=== PATIENT | female | born 1965 | race Caucasian/White ===

== ENCOUNTER 2020-05-21 02:46 | Inpatient (IN) ==
[2020-05-21] MEDS ORDERED: Isovue-370 500 ML BOTTLE IVP ONE (05:14)
[2020-05-21] MEDS ORDERED: Aspirin 81 MG TAB.CHEW PO ONE (07:21)
[2020-05-21] MEDS ORDERED: Regadenoson 0.4 MG/5 ML SYRINGE IVP ONE (08:29)
[2020-05-21] MEDS ORDERED: Naloxone 0.4 MG/ML INJ IVP PRN (08:51)
[2020-05-21 15:30] LABS: Bilirubin,Urine Negative (Negative); Blood,Urine Negative (Negative); Clarity,Urine Clear (Clear); Color,Urine Yellow (Yellow); Glucose,Urine (UA) >=1000 mg/dL (Normal); Ketones,Urine Negative (Negative); Leukocyte Esterase,Urine Negative (Negative); Mucus,Urine Few per lpf (None-Few); Nitrite,Urine Negative (Negative); Protein,Urine 30 mg/dL (Neg-Trace); Specific Gravity,Urine > 1.030 (1.010-1.025); Squamous Epithelial Cell,Urine Many per hpf (None-Few); Urobilinogen,Urine >=8.0 mg/dL (Normal); WBC,Urine 0-3 per hpf (0-3)
[2020-05-21] MEDS: Gabapentin 400 MG CAPSULE PO SCH (17:16)
[2020-05-21] MEDS: Venlafaxine XR (24 HR) 37.5 MG CAP.ER.24H PO SCH (17:16)
[2020-05-21] MEDS: lamoTRIgine 100 MG TABLET PO SCH (20:54)
[2020-05-21] MEDS: Insulin DETEMIR 100 UNIT/ML X5UNITS SUBQ SCH (20:54)
[2020-05-22] MEDS ORDERED: atenoloL 50 MG TABLET PO SCH (09:00)
[2020-05-22] MEDS: Gabapentin 400 MG CAPSULE PO SCH ×2 (10:10→17:18)
[2020-05-22] MEDS: Aspirin Enteric Coated 81 MG Tablet PO SCH (10:10)
[2020-05-22] MEDS: lamoTRIgine 100 MG TABLET PO SCH ×2 (10:10→21:09)
[2020-05-22] MEDS: FLUoxetine 20 MG CAPSULE PO SCH (10:10)
[2020-05-22] MEDS: lisinopriL 5 MG TABLET PO SCH (10:11)
[2020-05-22] MEDS: Ondansetron 4 MG/2 ML VIAL IVP PRN ×2 (10:20→21:00)
[2020-05-22] MEDS: Insulin DETEMIR 100 UNIT/ML X5UNITS SUBQ SCH ×2 (10:21→21:07)
[2020-05-22] MEDS ORDERED: Perflutren Lipid Microsphere 1.3 ML in 0.9 % Sodium Chloride 8.7 ML IVP PRN (11:11)
[2020-05-22] MEDS ORDERED: D5% in Water 1,000 ML IVC PRN (13:48)
[2020-05-22] MEDS ORDERED: Dextrose Gel 15 GM/37.5 ML TUBE PO PRN ×2 (13:48)
[2020-05-22] MEDS ORDERED: *HR* Dextrose 50 % in Water (Vial) 50 ML VIAL IVP PRN (13:48)
[2020-05-22] MEDS: Insulin LISPRO 300 UNITS/3 ML VIAL SUBQ SCH (17:18)
[2020-05-22] MEDS: Venlafaxine XR (24 HR) 37.5 MG CAP.ER.24H PO SCH (17:18)
[2020-05-23] MEDS: Acetaminophen 325 MG TABLET PO PRN ×2 (04:38→20:48)
[2020-05-23] MEDS: Insulin LISPRO 300 UNITS/3 ML VIAL SUBQ SCH ×3 (09:34→17:18)
[2020-05-23] MEDS: FLUoxetine 20 MG CAPSULE PO SCH (09:36)
[2020-05-23] MEDS: Aspirin Enteric Coated 81 MG Tablet PO SCH (09:36)
[2020-05-23] MEDS: lisinopriL 5 MG TABLET PO SCH (09:36)
[2020-05-23] MEDS: Gabapentin 400 MG CAPSULE PO SCH ×2 (09:37→17:18)
[2020-05-23] MEDS: lamoTRIgine 100 MG TABLET PO SCH ×2 (09:37→20:49)
[2020-05-23] MEDS: Insulin DETEMIR 100 UNIT/ML X5UNITS SUBQ SCH ×2 (09:46→20:49)
[2020-05-23] MEDS: Ondansetron 4 MG/2 ML VIAL IVP PRN ×2 (09:57→21:01)
[2020-05-23 10:39] LABS: Hematocrit 43.9 % (35.3-44.9); Hemoglobin 14.6 g/dL (11.5-15.4); Mean Corpuscular HGB Conc 33.3 g/dL (31.6-35.5); Mean Corpuscular Hemoglobin 30.9 pg (28.0-33.3); Mean Corpuscular Volume 92.8 fL (83.0-100.0); Mean Platelet Volume 9.6 fL (9.4-12.4); Platelet Count 160 K/mcL (140-400); Red Blood Count 4.73 M/mcL (3.82-4.97); Red Cell Distribution Width 12.6 % (11.5-14.5); White Blood Count 6.4 K/mcL (4.3-11.1)
[2020-05-23 10:58] LABS: BUN/Creatinine Ratio 18 (6-26); Blood Urea Nitrogen 11 mg/dL (6-20); Calcium 8.7 mg/dL (8.6-10.3); Carbon Dioxide 25 mEq/L (23-29); Chloride 104 mEq/L (98-107); Glucose 96 mg/dL (70-105); Magnesium 1.8 mg/dL (1.6-2.6); Osmolality,Calculated 283 (280-300); Potassium 3.8 mEq/L (3.5-5.1); Sodium 137 mEq/L (136-145); eGFR For African Americans > 60 (> 60); eGFR For Non-African Americans > 60 (> 60)
[2020-05-23] MEDS: Pantoprazole 40 MG VIAL IVP SCH (17:18)
[2020-05-23] MEDS: Venlafaxine XR (24 HR) 37.5 MG CAP.ER.24H PO SCH (17:18)
[2020-05-24] MEDS: Pantoprazole 40 MG VIAL IVP SCH ×2 (05:44→17:34)
[2020-05-24] MEDS: Insulin DETEMIR 100 UNIT/ML X5UNITS SUBQ SCH ×2 (08:00→20:43)
[2020-05-24] MEDS: Insulin LISPRO 300 UNITS/3 ML VIAL SUBQ SCH ×3 (09:53→17:34)
[2020-05-24] MEDS ORDERED: *HR* Propofol 200 MG/20 ML VIAL IVP ONE (10:46)
[2020-05-24] MEDS ORDERED: Lidocaine -MPF 2% 2 ML VIAL ONE (10:46)
[2020-05-24] MEDS: Ondansetron 4 MG/2 ML VIAL IVP PRN ×2 (12:40→19:14)
[2020-05-24] MEDS: lamoTRIgine 100 MG TABLET PO SCH ×2 (14:10→20:41)
[2020-05-24] MEDS: Aspirin Enteric Coated 81 MG Tablet PO SCH (14:10)
[2020-05-24] MEDS: lisinopriL 5 MG TABLET PO SCH (14:11)
[2020-05-24] MEDS: Gabapentin 400 MG CAPSULE PO SCH ×3 (14:12→20:41)
[2020-05-24] MEDS: FLUoxetine 20 MG CAPSULE PO SCH (14:12)
[2020-05-24] MEDS: *HR* Heparin 5,000 UNIT/ML VIAL SQ SCH (17:35)
[2020-05-24] MEDS: Venlafaxine XR (24 HR) 37.5 MG CAP.ER.24H PO SCH (17:35)
[2020-05-24] MEDS: Acetaminophen 325 MG TABLET PO PRN (20:42)
[2020-05-25] MEDS: *HR* Heparin 5,000 UNIT/ML VIAL SQ SCH ×2 (04:09→18:32)
[2020-05-25] MEDS: Pantoprazole 40 MG VIAL IVP SCH ×2 (04:09→18:32)
[2020-05-25] MEDS: Insulin LISPRO 300 UNITS/3 ML VIAL SUBQ SCH ×3 (07:22→16:31)
[2020-05-25] MEDS: Insulin DETEMIR 100 UNIT/ML X5UNITS SUBQ SCH ×2 (10:47→22:00)
[2020-05-25] MEDS: Gabapentin 400 MG CAPSULE PO SCH ×2 (11:53→18:31)
[2020-05-25] MEDS: Aspirin Enteric Coated 81 MG Tablet PO SCH (11:53)
[2020-05-25] MEDS: lamoTRIgine 100 MG TABLET PO SCH ×2 (11:53→21:59)
[2020-05-25] MEDS: FLUoxetine 20 MG CAPSULE PO SCH (11:57)
[2020-05-25] MEDS: lisinopriL 5 MG TABLET PO SCH (11:57)
[2020-05-25] MEDS ORDERED: Barium Sulfate 1 TAB TABLET PO ONE (13:53)
[2020-05-25] MEDS ORDERED: E-Z-HD (BARIUM SULF) SUSPENSION PO ONE (13:53)
[2020-05-25] MEDS: Ondansetron 4 MG/2 ML VIAL IVP PRN (16:28)
[2020-05-25] MEDS: Venlafaxine XR (24 HR) 37.5 MG CAP.ER.24H PO SCH (18:51)
[2020-05-25] MEDS: Acetaminophen 325 MG TABLET PO PRN (22:03)
[2020-05-26] MEDS: Pantoprazole 40 MG VIAL IVP SCH ×2 (05:13→17:19)
[2020-05-26] MEDS: *HR* Heparin 5,000 UNIT/ML VIAL SQ SCH ×2 (05:13→17:19)
[2020-05-26] MEDS: Insulin LISPRO 300 UNITS/3 ML VIAL SUBQ SCH ×3 (08:40→17:09)
[2020-05-26] MEDS: lisinopriL 5 MG TABLET PO SCH (10:03)
[2020-05-26] MEDS: Insulin DETEMIR 100 UNIT/ML X5UNITS SUBQ SCH ×2 (10:03→20:16)
[2020-05-26] MEDS: FLUoxetine 20 MG CAPSULE PO SCH (10:07)
[2020-05-26] MEDS: lamoTRIgine 100 MG TABLET PO SCH ×2 (10:07→20:16)
[2020-05-26] MEDS: Gabapentin 400 MG CAPSULE PO SCH ×2 (10:07→17:20)
[2020-05-26] MEDS: Aspirin Enteric Coated 81 MG Tablet PO SCH (10:07)
[2020-05-26] MEDS ORDERED: Nitroglycerin 0.4 MG TAB.SUBL SL PRN (13:26)
[2020-05-26] MEDS ORDERED: *HR* Propofol 200 MG/20 ML VIAL IVP ONE (13:27)
[2020-05-26] MEDS ORDERED: Lidocaine -MPF 2% 2 ML VIAL ONE (13:27)
[2020-05-26] MEDS: Venlafaxine XR (24 HR) 37.5 MG CAP.ER.24H PO SCH (17:20)
[2020-05-26] MEDS: Acetaminophen 325 MG TABLET PO PRN (21:19)
[2020-05-27] MEDS: Pantoprazole 40 MG VIAL IVP SCH ×2 (05:13→18:23)
[2020-05-27] MEDS: *HR* Heparin 5,000 UNIT/ML VIAL SQ SCH ×2 (05:13→18:20)
[2020-05-27] MEDS: Insulin LISPRO 300 UNITS/3 ML VIAL SUBQ SCH ×3 (08:21→16:53)
[2020-05-27] MEDS: Aspirin Enteric Coated 81 MG Tablet PO SCH (08:24)
[2020-05-27] MEDS: lisinopriL 5 MG TABLET PO SCH (08:25)
[2020-05-27] MEDS: lamoTRIgine 100 MG TABLET PO SCH ×2 (08:26→19:51)
[2020-05-27] MEDS: FLUoxetine 20 MG CAPSULE PO SCH (08:26)
[2020-05-27] MEDS: Gabapentin 400 MG CAPSULE PO SCH ×2 (09:00→18:22)
[2020-05-27] MEDS ORDERED: Chloraseptic Spray 177 ML BOTTLE MM PRN (11:52)
[2020-05-27] MEDS: 0.9 % Sodium Chloride 1,000 ML IVC SCH ×2 (12:55→23:46)
[2020-05-27] MEDS: *HR* HYDROcodone/Acet 5/325 mg TABLET PO PRN ×2 (13:05→19:58)
[2020-05-27] MEDS: Venlafaxine XR (24 HR) 37.5 MG CAP.ER.24H PO SCH (18:22)
[2020-05-27] MEDS: Ondansetron 4 MG/2 ML VIAL IVP PRN (20:04)
[2020-05-27] MEDS: Insulin DETEMIR 100 UNIT/ML X5UNITS SUBQ SCH (21:24)
[2020-05-28 03:51] LABS: Hemoglobin 14.3 g/dL (11.5-15.4); Mean Corpuscular HGB Conc 32.5 g/dL (31.6-35.5); Mean Corpuscular Hemoglobin 30.8 pg (28.0-33.3); Mean Corpuscular Volume 94.6 fL (83.0-100.0); Mean Platelet Volume 9.5 fL (9.4-12.4); Platelet Count 176 K/mcL (140-400); Red Blood Count 4.65 M/mcL (3.82-4.97); Red Cell Distribution Width 12.2 % (11.5-14.5); White Blood Count 7.9 K/mcL (4.3-11.1)
[2020-05-28 04:06] LABS: BUN/Creatinine Ratio 11 (6-26); Blood Urea Nitrogen 7 mg/dL (6-20); Calcium 8.5 mg/dL (8.6-10.3); Carbon Dioxide 27 mEq/L (23-29); Chloride 106 mEq/L (98-107); Glucose 121 mg/dL (70-105); Magnesium 1.8 mg/dL (1.6-2.6); Osmolality,Calculated 285 (280-300); Potassium 4.2 mEq/L (3.5-5.1); Sodium 138 mEq/L (136-145); eGFR For African Americans > 60 (> 60); eGFR For Non-African Americans > 60 (> 60)
[2020-05-28] MEDS: Pantoprazole 40 MG VIAL IVP SCH (06:10)
[2020-05-28] MEDS: *HR* Heparin 5,000 UNIT/ML VIAL SQ SCH (06:11)
[2020-05-28] MEDS: Insulin LISPRO 300 UNITS/3 ML VIAL SUBQ SCH ×2 (07:43→11:44)
[2020-05-28] MEDS: lisinopriL 5 MG TABLET PO SCH (09:44)
[2020-05-28] MEDS: Gabapentin 400 MG CAPSULE PO SCH (09:44)
[2020-05-28] MEDS: Aspirin Enteric Coated 81 MG Tablet PO SCH (09:45)
[2020-05-28] MEDS: lamoTRIgine 100 MG TABLET PO SCH (09:45)
[2020-05-28 10:45] VITALS: BP 126/79
== END 2020-05-28 16:19 | disposition home or self-care (01) | DRG 392 ==
LOC: SUATTDRO → EMEROOARM 02:46 → CDU 02:46 → SUATTDRO 07:52 → CDU 09:24 → SUATTDRO 05-22 15:30 → 3ANU 05-25 17:21
PROVIDERS: ADMIT Internal Medicine; ATTEND Internal Medicine
PROC: ENDOEBX (2020-05-24 09:00)